=== PATIENT | male | born 1990 | race African-American/Black ===

== ENCOUNTER 2023-07-09 20:15 | Emergency (ER) | payer OTHER, SELFPAY ==
[2023-07-09 20:55] LABS: #Basophils 0.1 thou/uL (0.0-0.2); #Eosinphils 0.7 thou/uL (0.0-0.7); #Lymphocytes 2.7 thou/uL (1.20-3.40); #Monocytes 0.5 thou/uL (0.11-0.59); #Neutrophils 3.3 thou/uL (1.40-6.50); %Basophils 1.4 % (0.0-1.0); %Eosinophils 9.7 % (0.0-10.0); %Lymphocytes 37.1 % (21.0-51.0); %Monocytes 6.9 % (0.0-10.0); %Neutrophils 44.9 % (42.0-75.0); Hematocrit 44.3 % (42.0-52.0); Hemoglobin 14.9 g/dL (14.0-18.0); Mean Corpuscular HGB CONC 33.6 g/dL (32.0-36.0); Mean Corpuscular Hemoglobin 29.2 pg (27.0-31.0); Mean Corpuscular Volume 86.7 fl (78.0-98.0); Platelet Count 234 10x3/uL (130-400); RBC Distribution Width 11.3 % (11.5-14.5); Red Blood Cell (RBC) Count 5.12 mill/uL (4.70-6.10); White Blood Cell (WBC) Count 7.4 10x3/uL (4.8-10.8)
[2023-07-09 21:12] LABS: ALT (SGPT) 38 U/L (8-55); AST (SGOT) 39 U/L (5-34); Albumin 4.4 g/dL (3.5-5.0); Alkaline Phosphatase 78 U/L (40-110); Anion Gap 13 mmol/L (10-20); BUN (Urea Nitrogen) 18 mg/dL (8.9-20.6); Bilirubin, Total 0.5 mg/dL (0.2-1.2); Calc. Creatinine Clearance 0 mL/min (70-130); Calcium 9.3 mg/dL (7.8-10.44); Carbon Dioxide 22 mmol/L (22-29); Chloride 106 mmol/L (98-107); Estimated GFR 68; Globulin 3.2 g/dL (2.4-3.5); Glucose 92 mg/dL (70-105); Lipase 33 U/L (8-78); Potassium 3.6 mmol/L (3.5-5.1); Protein, Total 7.6 g/dL (6.0-8.3); Sodium 137 mmol/L (136-145); Troponin I Less than 0.010 ng/mL (< 0.028)
== END 2023-07-09 21:40 | disposition home or self-care (01) ==
LOC: NAV ERS 20:15
DX: R07.89 Other chest pain (principal); F41.9 Anxiety disorder, unspecified
CPT/HCPCS: 71045; 80053; 83690; 84484; 85025; 93005